=== PATIENT | male | born 1940 | race Caucasian/White ===

== ENCOUNTER 2017-03-17 11:59 | Emergency (ER) | payer MEDICARE, OTHER ==
[2017-03-17 12:17] VITALS: BP 152/68
[2017-03-17 12:36] LABS: Urine Bilirubin Negative (NEGATIVE); Urine Blood 50 /ul (NEGATIVE); Urine Ketone Negative (NEGATIVE); Urine Nitrite Negative (NEGATIVE); Urine Protein 30 mg/dL (NEGATIVE); Urine Specific Gravity <=1.005 SP.GR. (1.005-1.030); Urine Urobilinogen Normal (NORMAL)
[2017-03-17 12:44] LABS: Urine Appearance Slightly Cloudy; Urine Bacteria 1+; Urine Color Pale Yellow
--- OUTSIDE RECORDS SUMMARY | 2017-03-17 12:49 | XMS REPORT | Continuity of Care Document ---
:1940 Author Organization [facility] ([facility]) Address [address] [place] [address] Phone [phone] Care Team Providers Name Role Phone Provider, No-Primary Care Primary Care Provider Unavailable Source Comments This disclosure is being made pursuant to the Care Everywhere program, applicable federal and state laws, and may not contain all informaitonavailable regarding this patient.[facility] ([facility]) Active Allergies and Adverse Reactions Not on File Current Medications Not on file Active Problems Not on file Most Recent Encounters Date Type Specialty Providers Description 03/16/2017 Hospital Encounter Radiation Oncology Kareem Rehman, Comp: Patient MD Reported Reason For Visit 03/15/2017 Hospital Encounter Radiation Oncology Kareem Rehman, Comp: Patient MD Reported Reason For Visit 03/14/2017 Hospital Encounter Radiation Oncology Kareem Rehman Chief Comp: Patient MD Reported Reason For Visit 03/13/2017 Hospital Encounter Radiation Oncology Kareem Rehman Chief Comp: Patient MD Reported Reason For Visit 03/12/2017 Hospital Encounter Radiation Oncology Kareem Rehman Chief Comp: Patient MD Reported Reason For Visit 03/09/2017 Hospital Encounter Radiation Oncology Kareem Rehman Chief Comp: Patient MD Reported Reason For Visit 03/08/2017 Hospital Encounter Radiation Oncology Kareem Rehman Chief Comp: Patient MD Reported Reason For Visit 03/07/2017 Hospital Encounter Radiation Oncology Kareem Rehman Chief Comp: Patient MD Reported Reason For Visit 03/06/2017 Hospital Encounter Radiation Oncology Kareem Rehman Chief Comp: Patient MD Reported Reason For Visit 03/05/2017 Hospital Encounter Radiation Oncology Kareem Rehman Chief Comp: Patient MD Reported Reason For Visit 03/02/2017 Hospital Encounter Radiation Kareem Laureano Chief Comp: Patient MD Reported Reason For Visit 03/01/2017 Hospital Encounter Radiation Oncology Kareem Rehman, Chief Comp: Patient MD Reported Reason For Visit 02/28/2017 Hospital Encounter Radiation Oncology Kareem Rehman, Chief Comp: Patient MD Reported Reason For Visit 02/27/2017 Hospital Encounter Radiation Oncology Kareem Rehman, Comp: Patient MD Reported Reason For Visit 02/26/2017 Hospital Encounter Radiation Oncology Kareem Rehman, Chief Comp: Patient MD Reported Reason For Visit 02/23/2017 Hospital Encounter Radiation Oncology Kareem Rehman, Chief Comp: Patient MD Reported Reason For Visit 02/22/2017 Hospital Encounter Radiation Oncology Kareem Rehman, Chief Comp: Patient MD Reported Reason For Visit 02/21/2017 Hospital Encounter Radiation Oncology Kareem Rehman, Chief Comp: Patient MD Reported Reason For Visit 02/20/2017 Hospital Encounter Radiation Oncology Kareem Rehman, Comp: Patient MD Reported Reason For Visit 02/19/2017 Hospital Encounter Radiation Oncology Kareem Rehman, Chief Comp: Patient MD Reported Reason For Visit 02/16/2017 Hospital Encounter Radiation Oncology Kareem Rehman, Chief Comp: Patient MD Reported Reason For Visit 02/15/2017 Hospital Encounter Radiation Oncology Kareem Rehman, Chief Comp: Patient MD Reported Reason For Visit 02/14/2017 Hospital Encounter Radiation Oncology Kareem Rehman, Comp: Patient MD Reported Reason For Visit 02/13/2017 Hospital Encounter Radiation Oncology Kareem Rehman, Comp: Patient MD Reported Reason For Visit 02/12/2017 Hospital Encounter Radiation Oncology Kareem Rehman, Chief Comp: Patient MD Reported Reason For Visit 02/09/2017 Hospital Encounter Radiation Oncology Kareem Rehman, Chief Comp: Patient MD Reported Reason For Visit 02/08/2017 Hospital Encounter Radiation Oncology Kareem Rehman, Chief Comp: Patient MD Reported Reason For Visit 02/07/2017 Hospital Encounter Radiation Oncology Kareem Rehman, Chief Comp: Patient MD Reported Reason For Visit 02/06/2017 Hospital Encounter Radiation Oncology Kareem Rehman Chief Comp: Patient MD Reported Reason For Visit 02/05/2017 Hospital Encounter Radiation Oncology Kareem Rehman, Chief Comp: Patient MD Reported Reason For Visit 02/01/2017 Hospital Encounter Radiation Oncology Kareem Rehman, Chief Comp: Patient MD Reported Reason For Visit 01/31/2017 Hospital Encounter Radiation Oncology Kareem Rehman, Chief Comp: Patient MD Reported Reason For Visit 01/30/2017 Hospital Encounter Radiation Oncology Kareem Rehman, Chief Comp: Patient MD Reported Reason For Visit 01/29/2017 Hospital Encounter Radiation Oncology Kareem Rehman Chief Comp: Patient MD Reported Reason For Visit 01/26/2017 Hospital Encounter Radiation Oncology Kareem Rehman Chief Comp: Patient MD Reported Reason For Visit 01/25/2017 Hospital Encounter Radiation Oncology Kareem Rehman, Chief Comp: Patient MD Reported Reason For Visit 01/24/2017 Hospital Encounter Radiation Oncology Kareem Rehman, Chief Comp: Patient MD Reported Reason For Visit 01/23/2017 Hospital Encounter Radiation Oncology Kareem Rehman, Chief Comp: Patient MD Reported Reason For Visit 01/17/2017 Hospital Encounter Radiation Oncology Kareem Rehman, Chief Comp: Patient MD Reported Reason For Visit 01/11/2017 Hospital Encounter Radiation Oncology Kareem Rehman, Chief Comp: Patient MD Reported Reason For Visit Social History Tobacco Use Types Packs/Day Years Used Date Never Assessed Plan of Care Date Type Specialty Providers Description 03/20/2017 Appointment Radiation Oncology Kareem Rehman MD Chief Comp: Patient [address] [place] [address] Visit [phone] (Fax) Health Maintenance Due Date Last Done Comments Hepatitis B Vaccine (1 of 3 - Primary Series) 1940 Tdap Vaccine 1949 Lipid Disorder Screening 1956 Td Vaccine 1958 Colonoscopy 11/08/1988 Zoster Vaccine 1998 Pneumococcal Vaccine (1 of 2 - PCV13) 2003 Influenza Vaccine: Seasonal (Season Ended) 2017 Results from Last 3 Months Not on file
--- NOTE | 2017-03-17 13:50 | ERNOTE ---
ER Male HPI Date of Service: 03/17/17 Stated Complaint: PAINFUL URINATION ER Male: dysuria, urinary retention Time Seen by Provider: 03/17/17 12:34 Source: patient Exam Limitations: other - patient currently having trreatment for prostate ca and has developed dysuria and frrequency Allergies/Adverse Reactions: Allergies No Known Allergies Allergy (Verified 03/17/17 12:21) Home Medications: HOME MEDICATIONS Atorvastatin Calcium [Lipitor] 20 mg PO DAILY 03/17/17 [Last Taken Unknown] Calcium Carbonate [Calcium] 250 mg PO DAILY 03/17/17 [Last Taken Unknown] Cetirizine HCl [Zyrtec] 10 mg PO DAILY 03/17/17 [Last Taken Unknown] Ciprofloxacin HCl [Cipro] 500 mg PO BID #20 tab 03/17/17 [Last Taken Unknown] Finasteride [Proscar] 5 mg PO DAILY 03/17/17 [Last Taken Unknown] Fluticasone/Salmeterol [Advair 100-50 Diskus] 1 puff IH BID 03/17/17 [Last Taken Unknown] HYDROcodone/ACETAMINOPHEN [[place]aven[place] 10-325 Tablet] 1 each PO QID #30 tablet [Last Taken Unknown] Ibuprofen [Motrin] 600 mg PO TID PRN 03/17/17 [Last Taken Unknown] Lisinopril [Zestril] 40 mg PO DAILY 03/17/17 [Last Taken Unknown] Megestrol Acetate 20 mg PO DAILY 03/17/17 [Last Taken Unknown] Methenamine/Sodium Salicylate [Cystex Tablet] 1 each PO DAILY 03/17/17 [Last Taken Unknown] Omeprazole 20 mg PO DAILY 03/17/17 [Last Taken Unknown] Terazosin HCl 10 mg PO DAILY 03/17/17 [Last Taken Unknown] - History of Present Illness Narrative: onset one to two days ago Review of Systems - Review of Systems Constitutional: Present: See HPI, recent illness, malaise EYE: Present: no symptoms reported ENT: Present: no symptoms reported Respiratory: Present: no symptoms reported Cardiology: Present: no symptoms reported Gastrointestinal/Abdominal: Present: no symptoms reported Genitourinary: Present: frequency, dysuria Musculoskeletal: Present: no symptoms reported Skin: Present: no symptoms reported Neurological: Present: no symptoms reported Endocrine: Present: no symptoms reported Hematologic/Lymphatic: Present: no symptoms reported Psych: Present: no symptoms reported All Other Systems: All systems neg except as marked - Patient's Past Medical History Patient History - Medical: Arthritis, UTI'S, Other - prostate ca Patient History - Cardiac/Respiratory: Hypertension, Hyperlipidemia Patient History - Cancer: Prostate Patient History - Surgical Procedures: Appendectomy, Cholecystectomy Patient History - Other: None - Family History Family History:: no untoward family reactions to anesthesia, no familial bleeding tendencies, no family history of clotting disorders, no family history of premature - Social History Living Situations: home Abuse History: No History of abuse Psych History: No pertinent hx Does anyone smoke in the home?: Yes Smoking Status: Heavy tobacco smoker Have you smoked in the past 12 months: Yes Do you dip or chew tobacco: No Patient requests Smoking Cessation Consult: No Initiate information on Smoking Cessation: No Alcohol Use: none Drug Use: none - Immunizations Immunizations Up to Date: Yes Hx Pneumococcal Vaccination: Yes History of Influenza Vaccine: Yes Physical Exam - Physical Exam General Appearance: Present: moderate distress Eye Exam: Normal inspection: bilateral, PERRL: bilateral, EOMI: bilateral Ears, Nose, Throat: Present: normal ENT inspection, other - traumatic loss of left eye Neck: Present: normal inspection, nontender Respiratory: Present: no respiratory distress, normal breath sounds, no accessory muscle use, chest nontender, lungs clear Cardiovascular/Chest: Present: regular rate, rhythm, no murmur, normal peripheral pulses Peripheral Pulses: N=norm/S=strong/W=weak/B=bound/A=absent: Carotid (R): Normal , Carotid (L): Normal, Radial (R): Normal, Radial (L): Normal, Femoral (R): Normal, Femoral (L): Normal, Dorsalis-pedis (R): Normal, Dorsalis-pedis (L): Normal Gastrointestinal/Abdominal: Present: normal bowel sounds, tenderness, distended , other - distension suprapubic region Male Genitals Exam: Present: normal genitalia Back Exam: Present: normal inspection, normal range of motion, no CVA tenderness , no vertebral tenderness Extremity Exam: Present: normal inspection, non-tender, normal range of motion, no edema Neurological Exam: Present: alert, oriented, normal mood/affect, no motor/ sensory deficits DTR: N=norm/NB=norm/brisk/A=abs/DD=dull/dimin/HC=hyperactive: Bicep (R): Normal , Bicep (L): Normal, Tricep (R): Normal, Tricep (L): Normal, Knee (R): Normal, Knee (L): Normal, Ankle (R): Normal, Ankle (L): Normal Skin Exam: Present: normal color, warm/dry Lymphatic Exam: Present: no adenopathy ED Progress - Results and Orders Patient's Lab Results:: I have reviewed the patient's lab results. - Vital Signs Vital Signs: Vital Signs 03/17/17 12:07 Temperature 36.3 C L Pulse Rate 81 Respiratory 12 Rate Blood Pressure 152/68 O2 Sat by Pulse 95 Oximetry - Progress/Reassessment Chief Complaint: Genitourinary Problem Progress:: Unchanged Progress Note-Subjective: 03/17/17 13:47 dicussed lab results with patient rx, to f/u with fp Departure Clinical Impression: UTI (urinary tract infection), bacterial - Departure Disposition: Home self-care Condition: Fair Instructions: Urinary Tract Infection, Adult, [id number], Urinary Frequency, Adult Prescriptions: Ciprofloxacin HCl [Cipro] 500 mg PO BID #20 tab HYDROcodone/ACETAMINOPHEN [[place] 10-325 Tablet] 1 each PO QID #30 tablet
[2017-03-17] MEDS ORDERED: KETOROLAC TROMETHAMINE 60 MG/2 ML VIAL IM ONE ×2 (13:58)
== END 2017-03-17 14:00 | disposition home or self-care (01) ==
LOC: ER 11:59
DX: N39.0 Urinary tract infection, site not specified (principal); B96.89 Other specified bacterial agents as the cause of diseases classified elsewhere; Z87.440 Personal history of urinary (tract) infections; Z85.46 Personal history of malignant neoplasm of prostate; Z72.0 Tobacco use; I10 Essential (primary) hypertension; E78.5 Hyperlipidemia, unspecified